=== PATIENT | male | born 1950 | race Caucasian/White ===

== ENCOUNTER 2018-09-18 16:51 | Emergency (ER) | payer SELFPAY ==
--- NOTE | 2018-09-18 18:14 | C.PDOC ---
History Of Present Illness Patient is a 67 year old male who was brought in by police to the ED for public intoxication. Patient denies any SI/HI, hallucinations, CP, SOB, trauma, falls, or other medical complaints at the moment. Time Seen by Provider: 09/18/18 16:55 Chief Complaint (Nursing): Substance Abuse History Per: Patient, Other (law enforcement ) History/Exam Limitations: intoxication Onset/Duration Of Symptoms: Hrs Current Symptoms Are (Timing): Still Present Suicide/Self Injury Attempted (Context): None Modifying Factor(s): Alcohol Associated Symptoms: denies: Suicidal Thoughts, Suicidal Plan, Other (homidal ideation ) Recent travel outside of the [place]: No Additional History Per: Patient, Law Enforcement Past Medical History Reviewed: Historical Data, Nursing Documentation, Vital Signs Vital Signs: Last Vital Signs Temp 97.6 F 09/18/18 17:00 Pulse 58 L 09/18/18 17:00 Resp 17 09/18/18 17:00 BP 157/90 H 09/18/18 17:00 Pulse Ox 99 09/18/18 17:00 - Medical History PMH: No Chronic Diseases Surgical History: No Surg Hx Family History: States: No Known Family Hx - Social History Hx Tobacco Use: No Hx Alcohol Use: Yes Hx Substance Use: No - Immunization History Hx Tetanus Toxoid Vaccination: No Hx Influenza Vaccination: No Hx Pneumococcal Vaccination: No Review Of Systems Except As Marked, All Systems Reviewed And Found Negative. Cardiovascular: Negative for: Chest Pain Respiratory: Negative for: Shortness of Breath Psych: Negative for: Suicidal ideation, Other (homicadal ideation, hallucinations ) Physical Exam - Physical Exam Appears: Non-toxic, No Acute Distress, Other (Appears intoxicated. Ambulatory ) Skin: Normal Color, Warm, Dry Head: Atraumatic, Normacephalic Oral Mucosa: Moist Neck: Normal ROM, Supple Chest: Symmetrical, No Deformity Cardiovascular: Rhythm Regular, No Murmur Respiratory: Normal Breath Sounds, No Rales, No Rhonchi, No Wheezing Gastrointestinal/Abdominal: Soft, No Tenderness, No Guarding, No Rebound Extremity: Normal ROM, Capillary Refill (less than 2 seconds) Neurological/Psych: Other (awake, alert, slurred speech ) ED Course And Treatment O2 Sat by Pulse Oximetry: 99 (on RA) Pulse Ox Interpretation: Normal Disposition - Disposition Disposition Time: 19:00 Condition: STABLE Forms: [employer] (Yoruba) - Clinical Impression Clinical Impression: Alcohol intoxication - PA / DIRECTOR [employer] / Resident Statement MD/DO has examined the patient and agrees with the treatment plan. - Scribe Statement The provider has reviewed the documentation as recorded by the Clint Edmonds All medical record entries made by the Alisonibe were at my direction and personally dictated by me. I have reviewed the chart and agree that the record accurately reflects my personal performance of the history, physical exam, medical decision making, and the department course for this patient. I have also personally directed, reviewed, and agree with the discharge instructions and disposition. Physician Patient Turnover Patient Signed Over To: Tg Coughlin Handoff Comments: pending sobriety
[2018-09-19 02:10] VITALS: RESP 16; O2SAT 99
[2018-09-19 05:52] VITALS: BP 118/76; PULSE 64; TEMP 98.4
== END 2018-09-19 06:12 | disposition home or self-care (01) ==
LOC: C.ER 16:51
DX: F10.129 Alcohol abuse with intoxication, unspecified (principal)